=== PATIENT | male | born 1990 | race African-American/Black ===

== ENCOUNTER 2016-11-29 13:11 | Emergency (ER) | payer SELFPAY ==
[~2016-11-29 13:11] MED LIST: ADVIL100 MG; AMOXICILLIN500 M1 PO; AUGMENTIN 875-11 TAB PO; BACTRIM 400-801 TAB; BACTRIM DS TAB1 EAC2 PO; BACTRIM DS TAB1 EACH PO; CHLORASEPTIC20 ML MM; CLINDAMYCIN HC300 MG PO; DICLOFENAC POTA50 M1 PO; KEFLEX500 M1 PO; NO MEDICATIONS; NO MEDS; NORCO 5-325 TA1 EACH PO; NORCO 5/325 TAB1 TAB PO; PENICILLIN V P500 M1 PO; PERCOCET 5MG/AP1 TA1 PO; TYLENOL #31 TA1 PO; ZITHROMAX250MG Z-PAK PO
== END 2016-11-29 13:50 | disposition left against medical advice (07) ==
LOC: EDMED 13:11
DX: Z53.21 Procedure and treatment not carried out due to patient leaving prior to being seen by health care provider (principal)